=== PATIENT | female | born 1945 | race Asian ===

== ENCOUNTER 2017-03-16 01:43 | Emergency (ER) | payer MEDICAID ==
[~2017-03-16] VITALS: Ht 162.6 cm; Wt 79.4 kg
[2017-03-16 01:43] VITALS: BP_SYST 155
[~2017-03-16 01:43] MED LIST: ASPI-1063 PO; ESCI10TA54 PO; METF750T PO; NOR10 PO
[2017-03-16] MEDS ORDERED: ASPIRIN 325 MG TABLET PO ONE (02:00)
[2017-03-16 02:19] LABS: BASOPHILS # (AUTO) 0.1 K/uL (0.0-0.2); BASOPHILS % (AUTO) 0.9 % (0.0-2.0); EOSINOPHILS # (AUTO) 0.6 K/uL (0.0-0.4); EOSINOPHILS % (AUTO) 5.7 % (0.0-4.0); HEMATOCRIT 39.9 % (36-48); LYMPHOCYTES # (AUTO) 3.4 K/uL (1.0-5.5); LYMPHOCYTES % (AUTO) 34.4 % (20.5-51.5); MEAN CORPUSCULAR HEMOGLOBIN 30 pg (27-31); MEAN CORPUSCULAR HGB CONC 33 % (32-36); MEAN CORPUSCULAR VOLUME 92 fL (79.0-98.0); MONOCYTES # (AUTO) 0.8 K/uL (0.0-1.0); MONOCYTES % (AUTO) 8.3 % (1.7-9.3); NEUTROPHILS # (AUTO) 5.1 K/uL (1.8-7.7); NEUTROPHILS % (AUTO) 50.7 % (40.0-70.0); PLATELET COUNT (AUTO) 247 K/uL (130-430); RED BLOOD CELL COUNT(AUTO) 4.32 MIL/uL (4.2-6.2); RED CELL DISTRIBUTION WIDTH 13.5 % (9.0-15.0)
[2017-03-16 02:24] LABS: ANION GAP 6 (5-15); CALCIUM 9.1 mg/dL (8.4-11.0); CHLORIDE 102 mmol/L (98-107); CREATININE 0.88 mg/dL (0.55-1.30); GLUCOSE 115 mg/dL (70-99); POTASSIUM 4.1 mmol/L (3.5-5.1); SODIUM SERUM 137 mmol/L (136-145); UREA NITROGEN, BLOOD 17 mg/dL (8-21)
[2017-03-16 02:28] LABS: ALANINE AMINOTRANSFERASE 30 U/L (12-78); ALBUMIN 3.6 g/dL (3.4-4.8); ASPARTATE AMINOTRANSFERASE 26 U/L (10-37); TOTAL BILIRUBIN 0.3 mg/dL (0.0-1.0); TOTAL PROTEIN, SERUM 7.9 g/dL (6.4-8.3)
[2017-03-16] MEDS ORDERED: LORazepam 2 MG/ML VIAL (FOR ER USE) IVP ONE (03:15)
[2017-03-16] MEDS ORDERED: KETOROLAC TROMETHAMINE 30 MG VIAL IVP ONE (03:15)
[2017-03-16 03:25] VITALS: BP_SYST 149
== END 2017-03-16 03:25 | disposition home or self-care (01) ==
LOC: SED 01:43
DX: M94.0 Chondrocostal junction syndrome [Tietze] (principal); E11.9 Type 2 diabetes mellitus without complications; I10 Essential (primary) hypertension; Z88.0 Allergy status to penicillin; Z88.2 Allergy status to sulfonamides; Z79.899 Other long term (current) drug therapy
CPT/HCPCS: 36415; 71010; 80053; 84484; 85025; 93005; 96374; 96375; 99285; J1885; J2060

== ENCOUNTER 2017-10-09 18:27 | Emergency (ER) | payer MEDICAID ==
[~2017-10-09] VITALS: Ht 157.5 cm; Wt 74.8 kg
[2017-10-09 18:33] VITALS: BP_SYST 145
[2017-10-09 19:19] LABS: BASOPHILS % (AUTO) 0.5 % (0.0-2.0); EOSINOPHILS # (AUTO) 0.5 K/uL (0.0-0.4); EOSINOPHILS % (AUTO) 5.8 % (0.0-4.0); HEMATOCRIT 45.2 % (36-48); HEMOGLOBIN 14.9 g/dL (12.0-16.0); LYMPHOCYTES % (AUTO) 31.8 % (20.5-51.5); MEAN CORPUSCULAR HEMOGLOBIN 31 pg (27-31); MEAN CORPUSCULAR HGB CONC 33 % (32-36); MEAN CORPUSCULAR VOLUME 93 fL (79.0-98.0); MONOCYTES # (AUTO) 0.7 K/uL (0.0-1.0); MONOCYTES % (AUTO) 7.3 % (1.7-9.3); NEUTROPHILS # (AUTO) 5.1 K/uL (1.8-7.7); NEUTROPHILS % (AUTO) 54.6 % (40.0-70.0); PLATELET COUNT (AUTO) 250 K/uL (130-430); RED BLOOD CELL COUNT(AUTO) 4.84 MIL/uL (4.2-6.2); RED CELL DISTRIBUTION WIDTH 13.6 % (9.0-15.0); WHITE BLOOD COUNT (AUTO) 9.3 K/uL (4.8-10.8)
[2017-10-09 19:29] LABS: ANION GAP 7 (5-15); CALCIUM 9.7 mg/dL (8.4-11.0); CHLORIDE 101 mmol/L (98-107); CREATININE 0.86 mg/dL (0.55-1.30); GLUCOSE 150 mg/dL (70-99); POTASSIUM 4.4 mmol/L (3.5-5.1); SODIUM SERUM 138 mmol/L (136-145); UREA NITROGEN, BLOOD 16 mg/dL (8-21)
[2017-10-09 19:33] LABS: PROTHROMBIN TIME 10.1 SECS (9.5-12.5)
[2017-10-09 19:37] LABS: ALANINE AMINOTRANSFERASE 30 U/L (12-78); ALBUMIN 3.6 g/dL (3.4-4.8); ASPARTATE AMINOTRANSFERASE 25 U/L (10-37); TOTAL BILIRUBIN 0.2 mg/dL (0.0-1.0)
[2017-10-09 21:56] VITALS: BP_SYST 145
== END 2017-10-09 21:56 | disposition home or self-care (01) ==
LOC: SED 18:27
DX: R42 Dizziness and giddiness (principal); E11.9 Type 2 diabetes mellitus without complications; I10 Essential (primary) hypertension; R79.1 Abnormal coagulation profile; Z88.0 Allergy status to penicillin; Z88.2 Allergy status to sulfonamides; Z79.82 Long term (current) use of aspirin; Z79.899 Other long term (current) drug therapy; Z79.84 Long term (current) use of oral hypoglycemic drugs
CPT/HCPCS: 36415; 70450-TC; 71045; 80053; 82962; 84484; 85025; 85610-TC; 85730-TC; 93005; 99285

== ENCOUNTER 2017-11-08 12:42 | Emergency (ER) | payer MEDICAID ==
[~2017-11-08] VITALS: Ht 162.6 cm; Wt 79.8 kg
[2017-11-08 12:55] VITALS: BP_SYST 110
[2017-11-08 14:48] LABS: BILIRUBIN,URINE NEGATIVE (NEGATIVE); BLOOD, URINE NEGATIVE (NEGATIVE); CLARITY/URINE CLEAR (CLEAR); COLOR,URINE YELLOW (YELLOW); GLUCOSE,URINE NEGATIVE (NEGATIVE); KETONES,URINE NEGATIVE (NEGATIVE); LEUKOCYTE ESTERASE ,URINE NEGATIVE (NEGATIVE); NITRITE, URINE NEGATIVE (NEGATIVE); PROTEIN URINE NEGATIVE (NEGATIVE); UROBILINOGEN,URINE 0.2 (0.2-1.0)
[2017-11-08 15:04] LABS: BASOPHILS # (AUTO) 0.1 K/uL (0.0-0.2); BASOPHILS % (AUTO) 0.8 % (0.0-2.0); EOSINOPHILS # (AUTO) 0.4 K/uL (0.0-0.4); EOSINOPHILS % (AUTO) 4.7 % (0.0-4.0); HEMATOCRIT 42.6 % (36-48); HEMOGLOBIN 13.8 g/dL (12.0-16.0); LYMPHOCYTES # (AUTO) 3.1 K/uL (1.0-5.5); LYMPHOCYTES % (AUTO) 35.2 % (20.5-51.5); MEAN CORPUSCULAR HEMOGLOBIN 30 pg (27-31); MEAN CORPUSCULAR HGB CONC 32 % (32-36); MEAN CORPUSCULAR VOLUME 93 fL (79.0-98.0); MONOCYTES # (AUTO) 0.7 K/uL (0.0-1.0); MONOCYTES % (AUTO) 8.2 % (1.7-9.3); NEUTROPHILS # (AUTO) 4.6 K/uL (1.8-7.7); NEUTROPHILS % (AUTO) 51.1 % (40.0-70.0); PLATELET COUNT (AUTO) 244 K/uL (130-430); RED CELL DISTRIBUTION WIDTH 13.4 % (9.0-15.0); WHITE BLOOD COUNT (AUTO) 8.9 K/uL (4.8-10.8)
[2017-11-08] MEDS ORDERED: LISINOPRIL 10 MG TABLET (PRINIVIL) PO ONE (15:30)
[2017-11-08] MEDS ORDERED: metFORMIN HCL 500 MG TABLET PO ONE (15:30)
[2017-11-08 16:07] LABS: ACETONE, SERUM NEGATIVE (NEGATIVE)
[2017-11-08 16:25] LABS: ANION GAP 5 (5-15); CHLORIDE 102 mmol/L (98-107); GLUCOSE 96 mg/dL (70-99); POTASSIUM 4.2 mmol/L (3.5-5.1); SODIUM SERUM 136 mmol/L (136-145)
[2017-11-08 16:26] LABS: ALANINE AMINOTRANSFERASE 39 U/L (12-78); ASPARTATE AMINOTRANSFERASE 34 U/L (10-37); CALCIUM 9.7 mg/dL (8.4-11.0); CREATININE 0.71 mg/dL (0.55-1.30); TOTAL BILIRUBIN 0.4 mg/dL (0.0-1.0); UREA NITROGEN, BLOOD 17 mg/dL (8-21)
[2017-11-08 16:27] LABS: ALBUMIN 3.7 g/dL (3.4-4.8); LIPASE 246 U/L (73-393)
[2017-11-08 16:57] VITALS: BP_SYST 127
== END 2017-11-08 16:58 | disposition home or self-care (01) ==
LOC: SED 12:42
DX: R42 Dizziness and giddiness (principal); I10 Essential (primary) hypertension; E11.29 Type 2 diabetes mellitus with other diabetic kidney complication; N28.9 Disorder of kidney and ureter, unspecified; Z88.2 Allergy status to sulfonamides; Z88.0 Allergy status to penicillin
CPT/HCPCS: 36415; 80053; 81003; 82009-TC; 82962; 83690-TC; 83880; 84484; 85025; 99284

== ENCOUNTER 2022-07-20 17:03 | Emergency (ER) | payer MEDICAID ==
[~2022-07-20] VITALS: Ht 162.6 cm; Wt 81.6 kg
[~2022-07-20 17:03] MED LIST changes: -ASPI-1063 PO; +ASPI-1393 PO; +ESCI-6 PO; -ESCI10TA54 PO
[2022-07-20 17:05] VITALS: BP_SYST 156
[2022-07-20 18:34] LABS: BASOPHILS # (AUTO) 0.1 K/uL (0.0-0.2); BASOPHILS % (AUTO) 0.8 % (0.0-2.0); EOSINOPHILS # (AUTO) 0.4 K/uL (0.0-0.4); EOSINOPHILS % (AUTO) 5.7 % (0.0-4.0); HEMATOCRIT 40.3 % (36-48); HEMOGLOBIN 13.3 g/dL (12.0-16.0); LYMPHOCYTES # (AUTO) 2.6 K/uL (1.0-5.5); LYMPHOCYTES % (AUTO) 32.6 % (20.5-51.5); MEAN CORPUSCULAR HEMOGLOBIN 30 pg (27-31); MEAN CORPUSCULAR HGB CONC 33 % (32-36); MEAN CORPUSCULAR VOLUME 91 fL (79.0-98.0); MONOCYTES # (AUTO) 0.8 K/uL (0.0-1.0); MONOCYTES % (AUTO) 10.6 % (1.7-9.3); NEUTROPHILS % (AUTO) 50.3 % (40.0-70.0); PLATELET COUNT (AUTO) 235 K/uL (130-430); RED BLOOD CELL COUNT(AUTO) 4.45 MIL/uL (4.2-6.2); RED CELL DISTRIBUTION WIDTH 14.3 % (9.0-15.0); WHITE BLOOD COUNT (AUTO) 7.9 K/uL (4.8-10.8)
[2022-07-20 18:41] LABS: BILIRUBIN,URINE NEGATIVE (NEGATIVE); BLOOD, URINE NEGATIVE (NEGATIVE); CLARITY/URINE CLEAR (CLEAR); COLOR,URINE YELLOW (YELLOW); GLUCOSE,URINE NEGATIVE (NEGATIVE); KETONES,URINE NEGATIVE (NEGATIVE); LEUKOCYTE ESTERASE ,URINE NEGATIVE (NEGATIVE); NITRITE, URINE NEGATIVE (NEGATIVE); PROTEIN URINE NEGATIVE (NEGATIVE); UROBILINOGEN,URINE 0.2 (0.2-1.0)
[2022-07-20 19:08] LABS: ANION GAP 7 (5-15); CALCIUM 10.1 mg/dL (8.4-11.0); CHLORIDE 102 mmol/L (98-107); CREATININE 0.89 mg/dL (0.55-1.30); GLUCOSE 129 mg/dL (70-99); POTASSIUM 4.2 mmol/L (3.5-5.1); UREA NITROGEN, BLOOD 18 mg/dL (8-21)
[2022-07-20 19:13] LABS: ALANINE AMINOTRANSFERASE 39 U/L (12-78); ALBUMIN 3.4 g/dL (3.4-4.8); ASPARTATE AMINOTRANSFERASE 38 U/L (10-37); LIPASE 265 U/L (73-393); TOTAL BILIRUBIN 0.2 mg/dL (0.0-1.0)
[2022-07-20 20:10] VITALS: BP_SYST 135
== END 2022-07-20 20:10 | disposition home or self-care (01) ==
LOC: SED 17:03
DX: K62.5 Hemorrhage of anus and rectum (principal); R10.31 Right lower quadrant pain; I11.0 Hypertensive heart disease with heart failure; I50.9 Heart failure, unspecified; E11.9 Type 2 diabetes mellitus without complications; Z88.0 Allergy status to penicillin; Z88.2 Allergy status to sulfonamides; Z79.899 Other long term (current) drug therapy
CPT/HCPCS: 36415; 76376; 80053; 81003; 83690; 85025; 99284

== ENCOUNTER 2022-10-11 11:34 | Emergency (ER) | payer MEDICAID ==
[~2022-10-11] VITALS: Ht 162.6 cm; Wt 79.8 kg
[2022-10-11 11:43] VITALS: BP_SYST 142
--- NOTE | 2022-10-11 11:50 | NUR ---
FROM HOME C/O ABD PAIN, VOMITED LAST NIGHT WITH VAGINAL BLEEDING DUE TO UTERINE PROLAPSE
--- NOTE | 2022-10-11 12:40 | NUR ---
PT BIB SON, AWAKE AND ALERT AOX4. NO SOB OR DISTRESS. PT C/O VAGINAL BLEEDING SINCE YESTERDAY. PT DENIES N/V. PT HAS HX OF UTERINE PROPLASE, DM2, DEPRESSION, HDL, GOUT. PT DENIES PAIN.
--- NOTE | 2022-10-11 12:55 | NUR ---
MD DR KHAN AT BEDSIDE
[2022-10-11 13:08] LABS: BASOPHILS # (AUTO) 0.1 K/uL (0.0-0.2); BASOPHILS % (AUTO) 0.5 % (0.0-2.0); EOSINOPHILS # (AUTO) 0.2 K/uL (0.0-0.4); EOSINOPHILS % (AUTO) 1.4 % (0.0-4.0); HEMATOCRIT 38.6 % (36-48); HEMOGLOBIN 12.6 g/dL (12.0-16.0); LYMPHOCYTES # (AUTO) 2.2 K/uL (1.0-5.5); LYMPHOCYTES % (AUTO) 20.2 % (20.5-51.5); MEAN CORPUSCULAR HEMOGLOBIN 30 pg (27-31); MEAN CORPUSCULAR HGB CONC 33 % (32-36); MEAN CORPUSCULAR VOLUME 92 fL (79.0-98.0); NEUTROPHILS # (AUTO) 7.5 K/uL (1.8-7.7); NEUTROPHILS % (AUTO) 68.9 % (40.0-70.0); PLATELET COUNT (AUTO) 273 K/uL (130-430); RED BLOOD CELL COUNT(AUTO) 4.18 MIL/uL (4.2-6.2); RED CELL DISTRIBUTION WIDTH 14.2 % (9.0-15.0); WHITE BLOOD COUNT (AUTO) 10.8 K/uL (4.8-10.8)
--- NOTE | 2022-10-11 13:08 | NUR ---
COVID SAMPLE COLLECTED, LABELED AND SENT TO LAB.
[2022-10-11 13:25] LABS: BILIRUBIN,URINE NEGATIVE (NEGATIVE); BLOOD, URINE 2+ (NEGATIVE); CLARITY/URINE SL CLOUDY (CLEAR); COLOR,URINE YELLOW (YELLOW); GLUCOSE,URINE NEGATIVE (NEGATIVE); KETONES,URINE NEGATIVE (NEGATIVE); LEUKOCYTE ESTERASE ,URINE 3+ (NEGATIVE); NITRITE, URINE POSITIVE (NEGATIVE); PROTEIN URINE NEGATIVE (NEGATIVE); UROBILINOGEN,URINE 0.2 (0.2-1.0)
[2022-10-11 13:27] LABS: ANION GAP 10 (5-15); CALCIUM 9.8 mg/dL (8.4-11.0); CHLORIDE 99 mmol/L (98-107); CREATININE 0.79 mg/dL (0.55-1.30); GLUCOSE 211 mg/dL (70-99); UREA NITROGEN, BLOOD 14 mg/dL (8-21)
[2022-10-11 13:32] LABS: ALANINE AMINOTRANSFERASE 35 U/L (12-78); ALBUMIN 3.3 g/dL (3.4-4.8); ASPARTATE AMINOTRANSFERASE 32 U/L (10-37); TOTAL BILIRUBIN 0.6 mg/dL (0.0-1.0)
[2022-10-11 13:36] LABS: BACTERIA,URINE MODERATE /HPF (None Seen)
[2022-10-11 13:37] LABS: WBC,URINE 80-100 /HPF (0-3)
[2022-10-11] MEDS ORDERED: NITR-85 PO (13:44)
[2022-10-11] MEDS ORDERED: cefTRIAXone 1 GM IVPB PREMIX 50 ML IV ONE (13:45)
[2022-10-11 15:09] VITALS: BP_SYST 136
--- NOTE | 2022-10-11 15:10 | NUR ---
Patient given written and verbal discharge instructions and verbalizes understanding. ER MD DR KHAN discussed with patient the results and treatment provided. Patient in stable condition. ID arm band removed. IV catheter removed intact and dressing applied, no active bleeding. Rx of MACROBID given. Patient educated on pain management and to follow up with PMD. Pain Scale 0/10. Opportunity for questions provided and answered. Medication side effect fact sheet provided.
== END 2022-10-11 15:09 | disposition home or self-care (01) ==
LOC: SED 11:34
DX: N81.4 Uterovaginal prolapse, unspecified (principal); N93.9 Abnormal uterine and vaginal bleeding, unspecified; N39.0 Urinary tract infection, site not specified; R10.9 Unspecified abdominal pain; R11.2 Nausea with vomiting, unspecified; E11.9 Type 2 diabetes mellitus without complications; I10 Essential (primary) hypertension; Z88.1 Allergy status to other antibiotic agents; Z88.2 Allergy status to sulfonamides; Z79.899 Other long term (current) drug therapy; Z20.822 Contact with and (suspected) exposure to COVID-19
CPT/HCPCS: 99285; 96365; 76856; 87426; 80053; 81000; 85025; 87040; 87086; 36415; J0696

== ENCOUNTER 2022-10-15 00:21 | Emergency (ER) | payer MEDICAID ==
[~2022-10-15] VITALS: Ht 162.6 cm; Wt 36.3 kg
[~2022-10-15 00:21] MED LIST changes: +NITR-85 PO
[2022-10-15 00:26] VITALS: BP_SYST 148
--- NOTE | 2022-10-15 00:30 | NUR ---
PT IS [facility] UN[id number] C/O ABD CRAMPS AND POSSIBLE S.E FR MACROBID PRESCRIBED FOR HER UTI ON 10/11/22. ALSO C/O N/V/D, DIZZINESS. HX: HTN, DM, HLD, ARTHRITIS. ALLERGIC TO FENTANYL & SULFA DRUGS. AMBULATORY W/ STEADY GAIT. B & B CONTINENT.
--- NOTE | 2022-10-15 00:31 | NUR ---
Placed in room 3 . Placed on desk monitor, blood pressure machine and pulse oximeter. To gown for exam. Side rails up. Report given to KEVIN MEHTA.
--- NOTE | 2022-10-15 00:38 | NUR ---
ER Dr. POOLE at bedside examining patient.
--- NOTE | 2022-10-15 00:40 | NUR ---
Urine specimen collected and SENT TO LAB.
[2022-10-15 01:10] LABS: CLARITY/URINE SLIGHTLY CLOUDY (CLEAR); COLOR,URINE YELLOW (YELLOW)
[2022-10-15 01:11] LABS: BILIRUBIN,URINE NEGATIVE (NEGATIVE); BLOOD, URINE 3+ (NEGATIVE); GLUCOSE,URINE NEGATIVE (NEGATIVE); KETONES,URINE NEGATIVE (NEGATIVE); LEUKOCYTE ESTERASE ,URINE 3+ (NEGATIVE); PROTEIN URINE NEGATIVE (NEGATIVE)
[2022-10-15 01:12] LABS: NITRITE, URINE NEGATIVE (NEGATIVE); UROBILINOGEN,URINE 0.2 (0.2-1.0)
[2022-10-15 01:27] LABS: WBC,URINE 50-80 /HPF (0-3)
[2022-10-15 01:28] LABS: BACTERIA,URINE MODERATE /HPF (None Seen); MUCUS,URINE None Seen /LPF (None Seen)
--- NOTE | 2022-10-15 01:38 | NUR ---
FAMILY AT BEDSIDE.SAFE & HAZARD FREE ENVIRONMENT PROVIDED.
[2022-10-15 01:40] LABS: ANION GAP 8 (5-15); CALCIUM 9.7 mg/dL (8.4-11.0); CHLORIDE 97 mmol/L (98-107); GLUCOSE 174 mg/dL (70-99); UREA NITROGEN, BLOOD 18 mg/dL (8-21)
[2022-10-15 01:45] LABS: ALANINE AMINOTRANSFERASE 47 U/L (12-78); ALBUMIN 3.1 g/dL (3.4-4.8); ASPARTATE AMINOTRANSFERASE 43 U/L (10-37); TOTAL BILIRUBIN 0.3 mg/dL (0.0-1.0)
[2022-10-15 01:46] LABS: BASOPHILS % (AUTO) 0.6 % (0.0-2.0); EOSINOPHILS # (AUTO) 0.5 K/uL (0.0-0.4); EOSINOPHILS % (AUTO) 5.6 % (0.0-4.0); HEMATOCRIT 37.5 % (36-48); HEMOGLOBIN 12.4 g/dL (12.0-16.0); LYMPHOCYTES # (AUTO) 3.3 K/uL (1.0-5.5); LYMPHOCYTES % (AUTO) 36.9 % (20.5-51.5); MEAN CORPUSCULAR HEMOGLOBIN 30 pg (27-31); MEAN CORPUSCULAR HGB CONC 33 % (32-36); MEAN CORPUSCULAR VOLUME 92 fL (79.0-98.0); MONOCYTES % (AUTO) 10.9 % (1.7-9.3); NEUTROPHILS # (AUTO) 4.2 K/uL (1.8-7.7); PLATELET COUNT (AUTO) 307 K/uL (130-430); RED BLOOD CELL COUNT(AUTO) 4.09 MIL/uL (4.2-6.2); RED CELL DISTRIBUTION WIDTH 14.1 % (9.0-15.0)
[2022-10-15] MEDS ORDERED: LEVO750T64 PO (02:15)
[2022-10-15 02:38] VITALS: BP_SYST 136
--- NOTE | 2022-10-15 02:39 | NUR ---
Patient given written and verbal discharge instructions and verbalizes understanding. ER MD DR. POOLE discussed with patient the results and treatment provided. Patient in stable condition ACCOMPANIED BY DAUGHTER. ID arm band removed. IV catheter removed intact and dressing applied, no active bleeding. Rx of LEVAQUIN given. Patient educated on pain management and to follow up with PMD. Pain Scale 0/10. Opportunity for questions provided and answered. Medication side effect fact sheet provided.
== END 2022-10-15 02:38 | disposition home or self-care (01) ==
LOC: SED 00:21
DX: N39.0 Urinary tract infection, site not specified (principal); R42 Dizziness and giddiness; R53.81 Other malaise; R68.83 Chills (without fever); E11.9 Type 2 diabetes mellitus without complications; I10 Essential (primary) hypertension; Z88.0 Allergy status to penicillin; Z88.2 Allergy status to sulfonamides; Z79.899 Other long term (current) drug therapy
CPT/HCPCS: 99284; 96365; 80053; 81000; 85025; 87040; 87086; 36415; 83605; J1956

== ENCOUNTER 2022-10-29 15:22 | Emergency (ER) | payer MEDICAID ==
[~2022-10-29] VITALS: Ht 152.4 cm; Wt 72.6 kg
[~2022-10-29 15:22] MED LIST changes: +LEVO750T64 PO
--- NOTE | 2022-10-29 15:22 | NUR ---
BROUGHT IN TO BED #5 AND TRIAGD. REPORT GIVEN TO CYRIL
[2022-10-29 15:25] VITALS: BP_SYST 134
[2022-10-29] MEDS ORDERED: KETOROLAC TROMETHAMINE 30 MG VIAL IVP ONE (15:45)
--- NOTE | 2022-10-29 15:50 | NUR ---
ER at bedside examining patient.
[2022-10-29 16:04] LABS: BASOPHILS # (AUTO) 0.1 K/uL (0.0-0.2); BASOPHILS % (AUTO) 0.7 % (0.0-2.0); EOSINOPHILS # (AUTO) 0.3 K/uL (0.0-0.4); EOSINOPHILS % (AUTO) 3.1 % (0.0-4.0); HEMATOCRIT 36.8 % (36-48); HEMOGLOBIN 12.1 g/dL (12.0-16.0); LYMPHOCYTES # (AUTO) 2.3 K/uL (1.0-5.5); MEAN CORPUSCULAR HEMOGLOBIN 30 pg (27-31); MEAN CORPUSCULAR HGB CONC 33 % (32-36); MEAN CORPUSCULAR VOLUME 92 fL (79.0-98.0); MONOCYTES # (AUTO) 0.7 K/uL (0.0-1.0); MONOCYTES % (AUTO) 8.7 % (1.7-9.3); NEUTROPHILS # (AUTO) 4.9 K/uL (1.8-7.7); NEUTROPHILS % (AUTO) 59.5 % (40.0-70.0); PLATELET COUNT (AUTO) 265 K/uL (130-430); RED BLOOD CELL COUNT(AUTO) 3.99 MIL/uL (4.2-6.2); RED CELL DISTRIBUTION WIDTH 14.8 % (9.0-15.0); WHITE BLOOD COUNT (AUTO) 8.3 K/uL (4.8-10.8)
[2022-10-29 16:20] LABS: ANION GAP 9 (5-15); CALCIUM 9.5 mg/dL (8.4-11.0); CHLORIDE 101 mmol/L (98-107); CREATININE 0.78 mg/dL (0.55-1.30); GLUCOSE 184 mg/dL (70-99); UREA NITROGEN, BLOOD 14 mg/dL (8-21)
[2022-10-29 16:25] LABS: ALANINE AMINOTRANSFERASE 43 U/L (12-78); ALBUMIN 3.2 g/dL (3.4-4.8); ASPARTATE AMINOTRANSFERASE 37 U/L (10-37); LIPASE 243 U/L (73-393); TOTAL BILIRUBIN 0.4 mg/dL (0.0-1.0)
--- NOTE | 2022-10-29 16:31 | NUR ---
provided urine specimen cup for pt, pt reports unable to go at this time. urine specimen cup left at bedside for pt
[2022-10-29 17:53] LABS: BILIRUBIN,URINE NEGATIVE (NEGATIVE); BLOOD, URINE NEGATIVE (NEGATIVE); CLARITY/URINE CLEAR (CLEAR); COLOR,URINE YELLOW (YELLOW); GLUCOSE,URINE NEGATIVE (NEGATIVE); KETONES,URINE NEGATIVE (NEGATIVE); LEUKOCYTE ESTERASE ,URINE NEGATIVE (NEGATIVE); NITRITE, URINE NEGATIVE (NEGATIVE); PH,URINE 6.5 (5.0-8.0); PROTEIN URINE NEGATIVE (NEGATIVE); UROBILINOGEN,URINE 0.2 (0.2-1.0)
[2022-10-29 18:17] VITALS: BP_SYST 117
--- NOTE | 2022-10-29 18:18 | NUR ---
PT SITTING UPRIGHT IN RJEFFREY, NO ACUTE DISTRESS NOTED. BREATHING EVEN AND UNLABORED. DIABETIC FOOD TRAY PROVIDED FOR PT. PT EATING FOOD AND IN POSITION OF COMFORT. NO CHANGES AT THIS TIME
--- NOTE | 2022-10-29 19:04 | NUR ---
discharge instructions reviewed with pt, pt verbalized understanding and denied questions. iv removed from r wrist, bleeding controlled and angiocath intact. pt ambulated from ed with steady gait
== END 2022-10-29 19:05 | disposition home or self-care (01) ==
LOC: SED 15:22
DX: N81.4 Uterovaginal prolapse, unspecified (principal); N93.9 Abnormal uterine and vaginal bleeding, unspecified; E11.9 Type 2 diabetes mellitus without complications; I10 Essential (primary) hypertension; Z88.0 Allergy status to penicillin; Z88.2 Allergy status to sulfonamides; Z79.899 Other long term (current) drug therapy
CPT/HCPCS: 99284; 96374; 80053; 82962; 83690; 85025; 36415; 81003; J1885

== ENCOUNTER 2023-05-12 15:26 | Emergency (ER) | payer MEDICAID ==
[~2023-05-12] VITALS: Ht 162.6 cm; Wt 70.3 kg
[2023-05-12 15:30] VITALS: BP_SYST 128; PULSE 71; RESP 16; TEMP 96.4; O2SAT 96
[2023-05-12 17:13] LABS: BILIRUBIN,URINE NEGATIVE (NEGATIVE); CLARITY/URINE HAZY (CLEAR); COLOR,URINE YELLOW (YELLOW); GLUCOSE,URINE NEGATIVE (NEGATIVE); KETONES,URINE NEGATIVE (NEGATIVE); PH,URINE 5.5 (5.0-8.0); PROTEIN URINE NEGATIVE (NEGATIVE)
[2023-05-12 17:14] LABS: BLOOD, URINE 1+ (NEGATIVE); LEUKOCYTE ESTERASE ,URINE 2+ (NEGATIVE); NITRITE, URINE POSITIVE (NEGATIVE); UROBILINOGEN,URINE 0.2 (0.2-1.0)
[2023-05-12 17:15] LABS: BACTERIA,URINE MODERATE /HPF (None Seen); MUCUS,URINE None Seen /LPF (None Seen); RBC,URINE NONE SEEN /HPF (0-3); WBC,URINE 50-80 /HPF (0-3)
[2023-05-12 17:20] LABS: BASOPHILS # (AUTO) 0.1 K/uL (0.0-0.2); BASOPHILS % (AUTO) 0.6 % (0.0-2.0); EOSINOPHILS # (AUTO) 0.5 K/uL (0.0-0.4); EOSINOPHILS % (AUTO) 4.8 % (0.0-4.0); HEMATOCRIT 39.5 % (36-48); HEMOGLOBIN 12.7 g/dL (12.0-16.0); LYMPHOCYTES # (AUTO) 2.7 K/uL (1.0-5.5); LYMPHOCYTES % (AUTO) 27.7 % (20.5-51.5); MEAN CORPUSCULAR HEMOGLOBIN 30 pg (27-31); MEAN CORPUSCULAR HGB CONC 32 % (32-36); MEAN CORPUSCULAR VOLUME 92 fL (79.0-98.0); MONOCYTES % (AUTO) 10.4 % (1.7-9.3); NEUTROPHILS # (AUTO) 5.5 K/uL (1.8-7.7); NEUTROPHILS % (AUTO) 56.5 % (40.0-70.0); PLATELET COUNT (AUTO) 476 K/uL (130-430); RED CELL DISTRIBUTION WIDTH 14.4 % (9.0-15.0); WHITE BLOOD COUNT (AUTO) 9.7 K/uL (4.8-10.8)
[2023-05-12 17:31] LABS: ALANINE AMINOTRANSFERASE 32 U/L (12-78); ALBUMIN 2.9 g/dL (3.4-4.8); ANION GAP 5 (5-15); ASPARTATE AMINOTRANSFERASE 56 U/L (10-37); CALCIUM 9.4 mg/dL (8.4-11.0); CARBON DIOXIDE 32 mmol/L (23-29); CHLORIDE 97 mmol/L (98-107); CREATININE 0.95 mg/dL (0.55-1.30); GLUCOSE 176 mg/dL (74-106); LIPASE 204 U/L (73-393); POTASSIUM 4.5 mmol/L (3.5-5.1); SODIUM SERUM 134 mmol/L (136-145); TOTAL BILIRUBIN 0.3 mg/dL (0.0-1.0); TOTAL PROTEIN, SERUM 8.1 g/dL (6.4-8.3); UREA NITROGEN, BLOOD 13 mg/dL (8-21)
[2023-05-12] MEDS ORDERED: AUG875 PO (18:35)
[2023-05-12] MEDS ORDERED: AMOXICILLIN/POTASSIUM CLAV 875 MG TABLET PO ONE (18:45)
[2023-05-12 18:51] VITALS: BP_SYST 118; PULSE 70; RESP 18; TEMP 98.5; O2SAT 98
== END 2023-05-12 18:51 | disposition home or self-care (01) ==
LOC: SED 15:26
DX: N39.0 Urinary tract infection, site not specified (principal); R33.9 Retention of urine, unspecified; R10.30 Lower abdominal pain, unspecified; R50.9 Fever, unspecified; E11.9 Type 2 diabetes mellitus without complications; I10 Essential (primary) hypertension; Z88.0 Allergy status to penicillin; Z88.2 Allergy status to sulfonamides; Z79.899 Other long term (current) drug therapy
CPT/HCPCS: 36415; 76376; 80053; 81000; 82962; 83605; 83690; 85025; 87040; 87086; 99284

== ENCOUNTER 2023-06-01 20:36 | Emergency (ER) | payer MEDICAID ==
[~2023-06-01] VITALS: Ht 160 cm; Wt 69.9 kg
[~2023-06-01 20:36] MED LIST changes: +AUG875 PO
[2023-06-01 20:40] VITALS: BP_SYST 126; PULSE 75; RESP 18; TEMP 97.6; O2SAT 96
[2023-06-01 21:57] LABS: BILIRUBIN,URINE NEGATIVE (NEGATIVE); BLOOD, URINE 2+ (NEGATIVE); CLARITY/URINE Slightly Cloudy (CLEAR); COLOR,URINE YELLOW (YELLOW); GLUCOSE,URINE NEGATIVE (NEGATIVE); KETONES,URINE NEGATIVE (NEGATIVE); LEUKOCYTE ESTERASE ,URINE 3+ (NEGATIVE); NITRITE, URINE NEGATIVE (NEGATIVE); PROTEIN URINE NEGATIVE (NEGATIVE); UROBILINOGEN,URINE 0.2 (0.2-1.0)
[2023-06-01] MEDS ORDERED: IBUP-1969 PO (22:19)
[2023-06-01] MEDS ORDERED: NITR-85 PO (22:19)
[2023-06-01] MEDS ORDERED: PHEN-726 PO (22:19)
[2023-06-01 22:24] LABS: BACTERIA,URINE MANY /HPF (None Seen); MUCUS,URINE None Seen /LPF (None Seen); WBC,URINE 20-50 /HPF (0-3)
[2023-06-02 00:14] VITALS: BP_SYST 128; PULSE 78; RESP 18; TEMP 98.3; O2SAT 97
== END 2023-06-02 00:14 | disposition home or self-care (01) ==
LOC: SED 20:36
DX: N39.0 Urinary tract infection, site not specified (principal); R30.0 Dysuria; R10.30 Lower abdominal pain, unspecified; E11.9 Type 2 diabetes mellitus without complications; I10 Essential (primary) hypertension; Z88.0 Allergy status to penicillin; Z88.2 Allergy status to sulfonamides; Z79.899 Other long term (current) drug therapy
CPT/HCPCS: 81000; 82962; 87086; 99283

== ENCOUNTER 2024-01-19 19:59 | Emergency (ER) | payer OTHER ==
[~2024-01-19] VITALS: Ht 160 cm; Wt 59.9 kg
[~2024-01-19 19:59] MED LIST changes: +IBUP-1969 PO; +PHEN-726 PO
[2024-01-19 20:11] VITALS: BP_SYST 128; PULSE 60; RESP 16; TEMP 97.5; O2SAT 98
[2024-01-19 20:42] LABS: BILIRUBIN,URINE NEGATIVE (NEGATIVE); BLOOD, URINE NEGATIVE (NEGATIVE); CLARITY/URINE CLEAR (CLEAR); COLOR,URINE YELLOW (YELLOW); GLUCOSE,URINE NEGATIVE (NEGATIVE); KETONES,URINE NEGATIVE (NEGATIVE); LEUKOCYTE ESTERASE ,URINE NEGATIVE (NEGATIVE); NITRITE, URINE NEGATIVE (NEGATIVE); PROTEIN URINE NEGATIVE (NEGATIVE); UROBILINOGEN,URINE 0.2 (0.2-1.0)
[2024-01-19] MEDS ORDERED: ONDA8TAB60 PO (21:03)
[2024-01-19] MEDS: KETOROLAC TROMETHAMINE 60 MG/2 ML VIAL IM ONE (21:15)
[2024-01-19 21:23] VITALS: BP_SYST 128; PULSE 60; RESP 16; TEMP 97.5; O2SAT 98
== END 2024-01-19 21:24 | disposition home or self-care (01) ==
LOC: SED 19:59
DX: R10.9 Unspecified abdominal pain (principal); R11.2 Nausea with vomiting, unspecified; R50.9 Fever, unspecified; E11.9 Type 2 diabetes mellitus without complications; I10 Essential (primary) hypertension; Z88.0 Allergy status to penicillin; Z88.2 Allergy status to sulfonamides; Z79.899 Other long term (current) drug therapy
CPT/HCPCS: 99283; 81001; 96372; 81003; J1885

== ENCOUNTER 2024-01-28 14:19 | Emergency (ER) | payer OTHER ==
[~2024-01-28] VITALS: Ht 162.6 cm; Wt 59.9 kg
[~2024-01-28 14:19] MED LIST changes: +ONDA8TAB60 PO
[2024-01-28 15:17] VITALS: BP_SYST 138; PULSE 66; RESP 18; TEMP 97.8; O2SAT 98
[2024-01-28 15:49] LABS: BASOPHILS # (AUTO) 0.1 K/uL (0.0-0.2); BASOPHILS % (AUTO) 0.8 % (0.0-2.0); EOSINOPHILS # (AUTO) 0.2 K/uL (0.0-0.4); EOSINOPHILS % (AUTO) 2.4 % (0.0-4.0); HEMATOCRIT 34.7 % (36-48); HEMOGLOBIN 11.5 g/dL (12.0-16.0); LYMPHOCYTES # (AUTO) 2.3 K/uL (1.0-5.5); LYMPHOCYTES % (AUTO) 25.3 % (20.5-51.5); MEAN CORPUSCULAR HEMOGLOBIN 30 pg (27-31); MEAN CORPUSCULAR HGB CONC 33 % (32-36); MEAN CORPUSCULAR VOLUME 90 fL (79.0-98.0); MONOCYTES # (AUTO) 0.8 K/uL (0.0-1.0); MONOCYTES % (AUTO) 9.3 % (1.7-9.3); NEUTROPHILS # (AUTO) 5.6 K/uL (1.8-7.7); NEUTROPHILS % (AUTO) 62.2 % (40.0-70.0); PLATELET COUNT (AUTO) 281 K/uL (130-430); RED BLOOD CELL COUNT(AUTO) 3.87 MIL/uL (4.2-6.2); RED CELL DISTRIBUTION WIDTH 14.3 % (9.0-15.0)
[2024-01-28 15:58] LABS: ALANINE AMINOTRANSFERASE 30 U/L (12-78); ALBUMIN 3.3 g/dL (3.4-4.8); ANION GAP 10 (5-15); ASPARTATE AMINOTRANSFERASE 30 U/L (10-37); BILIRUBIN,DIRECT 0.2 mg/dL (0.0-0.3); CALCIUM 9.6 mg/dL (8.4-11.0); CARBON DIOXIDE 28 mmol/L (23-29); CHLORIDE 99 mmol/L (98-107); CREATININE 0.97 mg/dL (0.55-1.30); GLUCOSE 167 mg/dL (74-106); POTASSIUM 4.4 mmol/L (3.5-5.1); SODIUM SERUM 137 mmol/L (136-145); TOTAL BILIRUBIN 0.4 mg/dL (0.0-1.0); TOTAL PROTEIN, SERUM 8.2 g/dL (6.4-8.3); UREA NITROGEN, BLOOD 12 mg/dL (8-21)
[2024-01-28] MEDS: SODIUM PHOSPHATE,MONO-DIBASIC 133 ML ENEMA RC ONE (18:36)
[2024-01-28] MEDS: METOCLOPRAMIDE HCL 10 MG/2 ML VIAL IM ONE (18:36)
[2024-01-28] MEDS: MAGNESIUM CITRATE 300 ML ORAL SOLUTION PO ONE (18:36)
[2024-01-28 19:50] VITALS: BP_SYST 138; PULSE 66; RESP 18; TEMP 97.8; O2SAT 98
== END 2024-01-28 19:33 | disposition home or self-care (01) ==
LOC: SED 14:19
DX: K59.00 Constipation, unspecified (principal); R10.32 Left lower quadrant pain; R11.0 Nausea; E11.9 Type 2 diabetes mellitus without complications; I10 Essential (primary) hypertension; Z88.0 Allergy status to penicillin; Z88.2 Allergy status to sulfonamides; Z79.899 Other long term (current) drug therapy
CPT/HCPCS: 99285; 74176; 80076; 80048; 85025; 36415; 96372; J2765

== ENCOUNTER 2024-04-06 19:22 | Inpatient (IN) | payer OTHER ==
[~2024-04-06] VITALS: Ht 162.6 cm; Wt 72.3 kg
[2024-04-06 19:35] VITALS: BP_SYST 159; PULSE 56; RESP 12; TEMP 98; O2SAT 94
[2024-04-06] MEDS: NACL 0.9% 1,000 ML IV ONE (20:32)
[2024-04-06 20:33] LABS: BASOPHILS % (AUTO) 0.4 % (0.0-2.0); EOSINOPHILS # (AUTO) 0.1 K/uL (0.0-0.4); EOSINOPHILS % (AUTO) 0.6 % (0.0-4.0); HEMATOCRIT 32.9 % (36-48); HEMOGLOBIN 10.9 g/dL (12.0-16.0); LYMPHOCYTES # (AUTO) 2.2 K/uL (1.0-5.5); MEAN CORPUSCULAR HEMOGLOBIN 28 pg (27-31); MEAN CORPUSCULAR HGB CONC 33 % (32-36); MEAN CORPUSCULAR VOLUME 85 fL (79.0-98.0); MONOCYTES # (AUTO) 0.9 K/uL (0.0-1.0); MONOCYTES % (AUTO) 8.2 % (1.7-9.3); NEUTROPHILS # (AUTO) 8.3 K/uL (1.8-7.7); NEUTROPHILS % (AUTO) 71.8 % (40.0-70.0); PLATELET COUNT (AUTO) 410 K/uL (130-430); RED BLOOD CELL COUNT(AUTO) 3.89 MIL/uL (4.2-6.2); RED CELL DISTRIBUTION WIDTH 14.9 % (9.0-15.0); WHITE BLOOD COUNT (AUTO) 11.5 K/uL (4.8-10.8)
[2024-04-06 20:42] LABS: INFLUENZA TYPE A Negative (NEGATIVE); INFLUENZA TYPE B NEGATIVE (NEGATIVE)
[2024-04-06 20:43] LABS: INR 1.1 (0.8-1.2)
[2024-04-06 20:45] LABS: ALANINE AMINOTRANSFERASE 18 U/L (12-78); ALBUMIN 2.9 g/dL (3.4-4.8); ANION GAP 9 (5-15); ASPARTATE AMINOTRANSFERASE 25 U/L (10-37); CALCIUM 9.4 mg/dL (8.4-11.0); CARBON DIOXIDE 28 mmol/L (23-29); CHLORIDE 98 mmol/L (98-107); CREATININE 0.91 mg/dL (0.55-1.30); GLUCOSE 129 mg/dL (74-106); POTASSIUM 3.7 mmol/L (3.5-5.1); SODIUM SERUM 135 mmol/L (136-145); TOTAL BILIRUBIN 0.4 mg/dL (0.0-1.0); TOTAL PROTEIN, SERUM 7.9 g/dL (6.4-8.3); UREA NITROGEN, BLOOD 18 mg/dL (8-21)
[2024-04-06 20:48] LABS: BILIRUBIN,DIRECT 0.1 mg/dL (0.0-0.3)
[2024-04-06] MEDS: PANTOPRAZOLE SODIUM 40 MG/VIAL (PROTONIX) IVP ONE (20:50)
[2024-04-06] MEDS: ONDANSETRON HCL 4 MG/2 ML VIAL IVP ONE (20:52)
[2024-04-06] MEDS: KETOROLAC TROMETHAMINE 15 MG VIAL IVP ONE (20:55)
[2024-04-06] MEDS ORDERED: EMPA25TA PO (21:09)
[2024-04-06] MEDS ORDERED: DICL50TA9 PO (21:09)
[2024-04-06] MEDS ORDERED: ESCI20TA PO (21:09)
[2024-04-06 21:35] LABS: BILIRUBIN,URINE NEGATIVE (NEGATIVE); BLOOD, URINE NEGATIVE (NEGATIVE); CLARITY/URINE SL CLOUDY (CLEAR); COLOR,URINE YELLOW (YELLOW); GLUCOSE,URINE 2+ (NEGATIVE); KETONES,URINE 1+ (NEGATIVE); LEUKOCYTE ESTERASE ,URINE 2+ (NEGATIVE); NITRITE, URINE NEGATIVE (NEGATIVE); PROTEIN URINE TRACE (NEGATIVE); UROBILINOGEN,URINE 0.2 (0.2-1.0)
[2024-04-06 21:43] LABS: BACTERIA,URINE MODERATE /HPF (None Seen); MUCUS,URINE None Seen /LPF (None Seen); RBC,URINE 0-3 /HPF (0-3); WBC,URINE 20-50 /HPF (0-3)
[2024-04-06] MEDS ORDERED: cefTRIAXone 1 GM VIAL ONE (22:03)
[2024-04-06] MEDS: cefTRIAXone 1 GM in D5W 50 ML IV ONE (22:04)
[2024-04-06] MEDS: ASPIRIN 81 MG TABLET(ECOTRIN) PO ONE (22:21)
[2024-04-06] MEDS: ACETAMINOPHEN 325 MG TABLET PO ONE (22:21)
[2024-04-06] MEDS: NITROGLYCERIN 1 INCH (GM) OINT. TP ONE (22:22)
[2024-04-06] MEDS ORDERED: DICLOFENAC SODIUM 25 MG TABLET.DR PO PRN (23:15)
[2024-04-06] MEDS ORDERED: PANTOPRAZOLE SODIUM 40 MG/VIAL (PROTONIX) IVP ONE (23:15)
[2024-04-07] MEDS ORDERED: LOPERAMIDE HCL 2 MG CAPSULE PO PRN
[2024-04-07] MEDS ORDERED: DEXTROSE 50% JECT 50 ML DISP.SYRIN IVP PRN
[2024-04-07] MEDS: LR 1,000 ML IV SCH (00:51)
[2024-04-07 01:30] VITALS: BP_SYST 101; PULSE 59; RESP 18; TEMP 97.8; O2SAT 95
[2024-04-07 07:40] LABS: BASOPHILS % (AUTO) 0.2 % (0.0-2.0); EOSINOPHILS # (AUTO) 0.1 K/uL (0.0-0.4); EOSINOPHILS % (AUTO) 1.3 % (0.0-4.0); HEMOGLOBIN 10.2 g/dL (12.0-16.0); LYMPHOCYTES # (AUTO) 2.9 K/uL (1.0-5.5); LYMPHOCYTES % (AUTO) 26.9 % (20.5-51.5); MEAN CORPUSCULAR HEMOGLOBIN 28 pg (27-31); MEAN CORPUSCULAR HGB CONC 33 % (32-36); MEAN CORPUSCULAR VOLUME 85 fL (79.0-98.0); MONOCYTES # (AUTO) 0.9 K/uL (0.0-1.0); MONOCYTES % (AUTO) 8.7 % (1.7-9.3); NEUTROPHILS # (AUTO) 6.7 K/uL (1.8-7.7); NEUTROPHILS % (AUTO) 62.9 % (40.0-70.0); PLATELET COUNT (AUTO) 379 K/uL (130-430); RED BLOOD CELL COUNT(AUTO) 3.66 MIL/uL (4.2-6.2); RED CELL DISTRIBUTION WIDTH 14.9 % (9.0-15.0); WHITE BLOOD COUNT (AUTO) 10.6 K/uL (4.8-10.8)
[2024-04-07 08:04] LABS: ALANINE AMINOTRANSFERASE 17 U/L (12-78); ALBUMIN 2.5 g/dL (3.4-4.8); ANION GAP 6 (5-15); ASPARTATE AMINOTRANSFERASE 22 U/L (10-37); CALCIUM 8.8 mg/dL (8.4-11.0); CARBON DIOXIDE 29 mmol/L (23-29); CHLORIDE 101 mmol/L (98-107); CREATININE 0.93 mg/dL (0.55-1.30); FREE T4 (FREE THYROXINE) 1.4 ng/dl (0.8-1.5); GLUCOSE 118 mg/dL (74-106); LIPASE 44 U/L (16-77); POTASSIUM 3.5 mmol/L (3.5-5.1); SODIUM SERUM 136 mmol/L (136-145); THYROID STIMULATING HORMONE 2.56 uIu/mL (0.36-3.74); TOTAL BILIRUBIN 0.3 mg/dL (0.0-1.0); TOTAL PROTEIN, SERUM 7.1 g/dL (6.4-8.3); UREA NITROGEN, BLOOD 15 mg/dL (8-21)
[2024-04-07 08:25] LABS: HEMOGLOBIN A1C 7.49 % (<5.7)
[2024-04-07 08:52] VITALS: BP_SYST 118; PULSE 59; RESP 16; TEMP 97.3; O2SAT 96
[2024-04-07] MEDS: LACTOBACILLUS RHAMNOSUS GG 1 CAP CAPSULE PO SCH (08:56)
[2024-04-07] MEDS: CITALOPRAM HYDROBROMIDE 20 MG TABLET PO SCH (08:56)
[2024-04-07] MEDS: amLODIPine BESYLATE 10 MG TABLET PO SCH (08:56)
[2024-04-07] MEDS: PANTOPRAZOLE SODIUM 40 MG/VIAL (PROTONIX) IVP SCH (08:57)
[2024-04-07] MEDS: ASPIRIN 81 MG TABLET(ECOTRIN) PO SCH (08:58)
[2024-04-07] MEDS: EMPAGLIFLOZIN 10 MG TABLET PO SCH (09:03)
[2024-04-07 09:36] VITALS: O2SAT 96
[2024-04-07 12:05] VITALS: BP_SYST 111; PULSE 60; RESP 17; TEMP 97.5; O2SAT 97
[2024-04-07] MEDS: DOCUSATE SODIUM 250 MG CAPSULE PO ONE (13:23)
[2024-04-07] MEDS: MILK OF MAGNESIA 30 ML UDC PO ONE (13:25)
[2024-04-07 16:24] LABS: TOTAL IRON BIND. CAPACITY 372 ug/dL (250-450)
[2024-04-07 16:26] LABS: CHOLESTEROL 173 mg/dL (<200); TRIGLYCERIDES 75 mg/dL (30-150)
[2024-04-07 16:27] LABS: HDL CHOLESTEROL 51 mg/dL (>55)
[2024-04-07 16:28] VITALS: BP_SYST 115; PULSE 62; RESP 16; TEMP 97.7; O2SAT 97
[2024-04-07] MEDS ORDERED: IBUPROFEN 200 MG TABLET PO PRN (19:45)
[2024-04-07 20:00] VITALS: BP_SYST 114; PULSE 73; RESP 18; TEMP 98.1; O2SAT 96
[2024-04-07] MEDS: DOCUSATE SODIUM 250 MG CAPSULE PO SCH (20:38)
[2024-04-07] MEDS: ACETAMINOPHEN 325 MG TABLET PO PRN (20:39)
[2024-04-07] MEDS: INSULIN REGULAR, HUMAN 100 UNITS/ML, 3 ML VIAL (humuLIN R) SUBCUT PRN (20:48)
[2024-04-08] VITALS: BP_SYST 120; PULSE 61; RESP 16; TEMP 98.2; O2SAT 94
[2024-04-08] MEDS ORDERED: MILK OF MAGNESIA 30 ML UDC PO PRN (07:00)
[2024-04-08 08:00] VITALS: O2SAT 97
[2024-04-08 08:25] VITALS: BP_SYST 136; PULSE 67; RESP 17; TEMP 97.8; O2SAT 97
[2024-04-08 11:40] VITALS: BP_SYST 110; PULSE 85; RESP 18; TEMP 97.3; O2SAT 100
[2024-04-08 16:32] VITALS: BP_SYST 116; PULSE 80; RESP 17; TEMP 97.7; O2SAT 99
[2024-04-08] MEDS ORDERED: MAGNESIUM CITRATE 300 ML ORAL SOLUTION PO ONE (18:00)
[2024-04-08] MEDS: BISACODYL 5 MG TABLET.DR (DULCOLAX) PO ONE (18:29)
[2024-04-08] MEDS: GOLYTELY / COLYTE SOLUTION 4 LITERS PO ONE (18:51)
[2024-04-08 20:00] VITALS: BP_SYST 124; PULSE 78; RESP 18; TEMP 97.5; O2SAT 96
[2024-04-08] MEDS: SOD FERRIC GLUC COMPLEX/SUC 125 MG in NS 100 ML IV SCH (21:57)
[2024-04-09 00:41] VITALS: BP_SYST 144; PULSE 75; RESP 17; TEMP 97.6; O2SAT 98
[2024-04-09 07:40] VITALS: O2SAT 97
[2024-04-09 07:52] LABS: BASOPHILS % (AUTO) 0.5 % (0.0-2.0); EOSINOPHILS # (AUTO) 0.3 K/uL (0.0-0.4); EOSINOPHILS % (AUTO) 4.3 % (0.0-4.0); HEMATOCRIT 34.7 % (36-48); HEMOGLOBIN 11.2 g/dL (12.0-16.0); LYMPHOCYTES # (AUTO) 2.2 K/uL (1.0-5.5); LYMPHOCYTES % (AUTO) 28.5 % (20.5-51.5); MEAN CORPUSCULAR HEMOGLOBIN 28 pg (27-31); MEAN CORPUSCULAR HGB CONC 32 % (32-36); MEAN CORPUSCULAR VOLUME 86 fL (79.0-98.0); MONOCYTES # (AUTO) 0.7 K/uL (0.0-1.0); NEUTROPHILS # (AUTO) 4.5 K/uL (1.8-7.7); NEUTROPHILS % (AUTO) 57.7 % (40.0-70.0); PLATELET COUNT (AUTO) 399 K/uL (130-430); RED BLOOD CELL COUNT(AUTO) 4.03 MIL/uL (4.2-6.2); WHITE BLOOD COUNT (AUTO) 7.8 K/uL (4.8-10.8)
[2024-04-09 08:00] VITALS: BP_SYST 128; PULSE 63; RESP 18; TEMP 97; O2SAT 97
[2024-04-09 08:06] LABS: ANION GAP 7 (5-15); CALCIUM 9.3 mg/dL (8.4-11.0); CARBON DIOXIDE 30 mmol/L (23-29); CHLORIDE 103 mmol/L (98-107); CREATININE 0.83 mg/dL (0.55-1.30); GLUCOSE 139 mg/dL (74-106); POTASSIUM 3.8 mmol/L (3.5-5.1); SODIUM SERUM 140 mmol/L (136-145); UREA NITROGEN, BLOOD 9 mg/dL (8-21)
[2024-04-09] MEDS: fentaNYL CITRATE/PF 100 MCG/2 ML AMP ONE (08:58)
[2024-04-09] MEDS ORDERED: MIDAZOLAM HCL 5 MG/5 ML VIAL ONE (08:59)
[2024-04-09] MEDS ORDERED: METOCLOPRAMIDE HCL 10 MG TABLET PO PRN (12:45)
[2024-04-09] MEDS ORDERED: DOCU250C71 PO (13:48)
[2024-04-09] MEDS ORDERED: LACT1CAP57 PO (13:48)
[2024-04-09] MEDS ORDERED: MOM PO (13:48)
[2024-04-09] MEDS ORDERED: PRO40 PO (13:48)
[2024-04-09] MEDS ORDERED: METO-290 PO (13:48)
[2024-04-09] MEDS ORDERED: MEROPENEM 1 GM in NS 100 ML IV SCH (14:00)
[2024-04-09] MEDS: ERTAPENEM SODIUM 1 GM in NS 50 ML IV ONE (14:11)
[2024-04-09] MEDS: MAG-AL HYDROX/SIMETH 30 ML UDC PO PRN (15:38)
[2024-04-09 16:16] VITALS: BP_SYST 118; PULSE 80; RESP 16; TEMP 97.4; O2SAT 94
[2024-04-09 19:00] VITALS: O2SAT 95
[2024-04-09 20:00] VITALS: BP_SYST 142; PULSE 78; RESP 18; TEMP 98.1; O2SAT 95
[2024-04-09] MEDS: HALOPERIDOL LACTATE 5 MG/ML VIAL IM PRN (23:56)
[2024-04-10 01:16] VITALS: BP_SYST 138; PULSE 78; RESP 18; TEMP 97.2; O2SAT 95
[2024-04-10 09:40] VITALS: O2SAT 96
[2024-04-10 12:52] VITALS: BP_SYST 146; PULSE 64; RESP 18; TEMP 98; O2SAT 96
[2024-04-10] MEDS: ERTAPENEM SODIUM 1 GM in NS 50 ML IV SCH (13:35)
[2024-04-10 16:43] VITALS: BP_SYST 130; PULSE 68; RESP 16; TEMP 97.7; O2SAT 98
== END 2024-04-10 17:30 | disposition home health service (06) | DRG 690 ==
LOC: SED 19:22 → STU 23:10 → SMU 04-08 19:55
PROVIDERS: ADMIT Internal Medicine; ATTEND Internal Medicine
PROC: 4A10X4Z Monitoring of Central Nervous Electrical Activity, External Approach (ICD-10-PCS; principal; 2024-04-10)
DX: N39.0 Urinary tract infection, site not specified (principal); E44.0 Moderate protein-calorie malnutrition; I24.89 Other forms of acute ischemic heart disease; K52.9 Noninfective gastroenteritis and colitis, unspecified; Z20.822 Contact with and (suspected) exposure to COVID-19; B96.20 Unspecified Escherichia coli [E. coli] as the cause of diseases classified elsewhere; I10 Essential (primary) hypertension; E11.40 Type 2 diabetes mellitus with diabetic neuropathy, unspecified; E78.5 Hyperlipidemia, unspecified; D50.9 Iron deficiency anemia, unspecified; K57.30 Diverticulosis of large intestine without perforation or abscess without bleeding; Z68.27 Body mass index [BMI] 27.0-27.9, adult; Z88.0 Allergy status to penicillin; Z88.2 Allergy status to sulfonamides; Z88.8 Allergy status to other drugs, medicaments and biological substances; E11.65 Type 2 diabetes mellitus with hyperglycemia
CPT/HCPCS: 36415; 70450-TC; 71045; 80048; 80053; 80061; 80076; 81000; 81001; 81015; 82948; 83037; 83540; 83550; 83605; 83690; 83735; 84439; 84443; 84484; 85025; 85610; 85730; 87040; 87086; 87186; 93005; 93306; 95816; 96374; 96375; 97110-GP; 97116-GP; 97163-GP; 97530-GP; 99285; G0378; J0696; J1335; J1630; J1815; J1885; J1956; J2250; J2405; J2470; J2916; J3010

== ENCOUNTER 2024-04-16 07:25 | Inpatient (IN) | payer OTHER ==
[~2024-04-16] VITALS: Ht 165.1 cm; Wt 72.6 kg
[2024-04-16] VITALS (16 sets, daily range): BP systolic 79–135; PULSE 79–108; RESP 14–19; TEMP 96.1–99.1; O2SAT 90–100
[~2024-04-16 07:25] MED LIST changes: -AUG875 PO; +DICL50TA9 PO; +DOCU250C71 PO; +EMPA25TA PO; -ESCI-6 PO; +ESCI20TA PO; -IBUP-1969 PO; +LACT1CAP57 PO; -LEVO750T64 PO; +METO-290 PO; +MOM PO; -NITR-85 PO; -PHEN-726 PO; +PRO40 PO
[2024-04-16] MEDS ORDERED: PANTOPRAZOLE SODIUM 40 MG/VIAL (PROTONIX) ONE ×2 (07:45→12:30)
[2024-04-16 07:49] LABS: BASOPHILS % (AUTO) 0.4 % (0.0-2.0); EOSINOPHILS # (AUTO) 0.1 K/uL (0.0-0.4); EOSINOPHILS % (AUTO) 1.2 % (0.0-4.0); LYMPHOCYTES # (AUTO) 2.2 K/uL (1.0-5.5); LYMPHOCYTES % (AUTO) 24.9 % (20.5-51.5); MEAN CORPUSCULAR HEMOGLOBIN 28 pg (27-31); MEAN CORPUSCULAR HGB CONC 31 % (32-36); MEAN CORPUSCULAR VOLUME 91 fL (79.0-98.0); MONOCYTES # (AUTO) 0.5 K/uL (0.0-1.0); MONOCYTES % (AUTO) 5.3 % (1.7-9.3); NEUTROPHILS # (AUTO) 6.1 K/uL (1.8-7.7); NEUTROPHILS % (AUTO) 68.2 % (40.0-70.0); PLATELET COUNT (AUTO) 177 K/uL (130-430); RED CELL DISTRIBUTION WIDTH 15.6 % (9.0-15.0); WHITE BLOOD COUNT (AUTO) 8.9 K/uL (4.8-10.8)
[2024-04-16] MEDS ORDERED: NOREPINEPHRINE 4 MG/4 ML VIAL IV ONE (07:59)
[2024-04-16 08:01] LABS: HEMOGLOBIN 4.3 g/dL (12.0-16.0); RED BLOOD CELL COUNT(AUTO) 1.53 MIL/uL (4.2-6.2)
[2024-04-16 08:02] LABS: HEMATOCRIT 13.8 % (36-48)
[2024-04-16] MEDS: NACL 0.9% 1,000 ML IV ONE (08:11)
[2024-04-16] MEDS: ONDANSETRON HCL 4 MG/2 ML VIAL IVP ONE (08:11)
[2024-04-16] MEDS: PANTOPRAZOLE SODIUM 80 MG in NS 100 ML IV ONE (08:11)
[2024-04-16 08:14] LABS: ALANINE AMINOTRANSFERASE 13 U/L (12-78); ALBUMIN 1.2 g/dL (3.4-4.8); ANION GAP 12 (5-15); ASPARTATE AMINOTRANSFERASE 19 U/L (10-37); BILIRUBIN,DIRECT 0.1 mg/dL (0.0-0.3); CARBON DIOXIDE 18 mmol/L (23-29); CHLORIDE 112 mmol/L (98-107); CREATININE 0.96 mg/dL (0.55-1.30); GLUCOSE 229 mg/dL (74-106); POTASSIUM 3.8 mmol/L (3.5-5.1); SODIUM SERUM 142 mmol/L (136-145); TOTAL BILIRUBIN 0.2 mg/dL (0.0-1.0); TOTAL PROTEIN, SERUM 3.7 g/dL (6.4-8.3); UREA NITROGEN, BLOOD 38 mg/dL (8-21)
[2024-04-16 08:16] LABS: CALCIUM 5.9 mg/dL (8.4-11.0)
[2024-04-16 08:24] LABS: INR 1.3 (0.8-1.2); PROTHROMBIN TIME 12.9 SECS (9.5-12.5)
[2024-04-16] MEDS ORDERED: DEXTROSE 50% JECT 50 ML DISP.SYRIN IVP PRN (08:45)
[2024-04-16] MEDS ORDERED: GLUCOSE (DEXTROSE) ORAL GEL -Adults PO PRN (08:45)
[2024-04-16] MEDS ORDERED: D5W 1,000 ML IV PRN (08:45)
[2024-04-16] MEDS: NOREPINEPHRINE BITARTRATE 4 MG in NS 246 ML IV ONE (08:57)
[2024-04-16] MEDS ORDERED: NOREPINEPHRINE BITARTRATE 4 MG in D5W 246 ML IV PRN (10:45)
[2024-04-16 11:03] LABS: HEMATOCRIT 35.2 % (36-48); MEAN CORPUSCULAR HEMOGLOBIN 27 pg (27-31); MEAN CORPUSCULAR HGB CONC 31 % (32-36); MEAN CORPUSCULAR VOLUME 86 fL (79.0-98.0); PLATELET COUNT (AUTO) 164 K/uL (130-430); RED BLOOD CELL COUNT(AUTO) 4.12 MIL/uL (4.2-6.2); RED CELL DISTRIBUTION WIDTH 15.6 % (9.0-15.0)
[2024-04-16] MEDS ORDERED: CALCIUM GLUCONATE 1 GM/10 ML VIAL IVP ONE (11:15)
[2024-04-16] MEDS: NACL 0.9% 1,000 ML IV SCH (11:23)
[2024-04-16 11:36] LABS: BAND % (MANUAL) 6 % (0-6); BASOPHILS % (MANUAL) 0 % (0-2); EOSINOPHILS % (MANUAL) 0 % (0-7); LYMPHOCYTES % (MANUAL) 4 % (20-46); MONOCYTES % (MANUAL) 3 % (0-11)
[2024-04-16 11:37] LABS: ANISOCYTOSIS 1+; HYPOCHROMASIA SLIGHT; PLATELET ESTIMATE ADEQUATE (ADEQUATE)
[2024-04-16] MEDS: CALCIUM GLUC 1 GM/100ML-NACL 100 ML IV ONE (12:00)
[2024-04-16] MEDS: METOCLOPRAMIDE HCL 10 MG/2 ML VIAL IVP ONE (13:20)
[2024-04-16] MEDS: PANTOPRAZOLE SODIUM 40 MG in NS 50 ML IV SCH ×2 (13:20→16:42)
[2024-04-16] MEDS: NOREPINEPHRINE BITARTRATE 8 MG in NS 242 ML IV PRN (14:41)
[2024-04-16 15:05] LABS: BASOPHILS % (AUTO) 0.1 % (0.0-2.0); LYMPHOCYTES # (AUTO) 1.8 K/uL (1.0-5.5); RED CELL DISTRIBUTION WIDTH 15.8 % (9.0-15.0)
[2024-04-16 15:16] LABS: HEMATOCRIT 30.6 % (36-48); LYMPHOCYTES % (AUTO) 7.7 % (20.5-51.5); MEAN CORPUSCULAR HEMOGLOBIN 27 pg (27-31); MEAN CORPUSCULAR HGB CONC 32 % (32-36); MEAN CORPUSCULAR VOLUME 84 fL (79.0-98.0); MONOCYTES # (AUTO) 0.9 K/uL (0.0-1.0); MONOCYTES % (AUTO) 4.1 % (1.7-9.3); NEUTROPHILS # (AUTO) 20.3 K/uL (1.8-7.7); NEUTROPHILS % (AUTO) 88.1 % (40.0-70.0); PLATELET COUNT (AUTO) 157 K/uL (130-430); RED BLOOD CELL COUNT(AUTO) 3.65 MIL/uL (4.2-6.2); WHITE BLOOD COUNT (AUTO) 23.1 K/uL (4.8-10.8)
[2024-04-16 15:29] LABS: HEMOGLOBIN 9.7 g/dL (12.0-16.0)
[2024-04-16] MEDS: MEROPENEM 1 GM in NS 100 ML IV SCH (16:53)
[2024-04-16] MEDS: VANCOMYCIN HCL 1,500 MG in NS 250 ML IV SCH (16:53)
[2024-04-16] MEDS: METOCLOPRAMIDE HCL 10 MG/2 ML VIAL IVP SCH (21:42)
[2024-04-16] MEDS: INSULIN LISPRO SLIDING SCALE 100 UNITS/ML, 3 ML VIAL (humaLOG) SUBCUT PRN (21:49)
[2024-04-16 23:17] LABS: BASOPHILS % (AUTO) 0.1 % (0.0-2.0); HEMATOCRIT 24.9 % (36-48); HEMOGLOBIN 8.3 g/dL (12.0-16.0); LYMPHOCYTES # (AUTO) 3.1 K/uL (1.0-5.5); LYMPHOCYTES % (AUTO) 13.2 % (20.5-51.5); MEAN CORPUSCULAR HEMOGLOBIN 28 pg (27-31); MEAN CORPUSCULAR HGB CONC 33 % (32-36); MEAN CORPUSCULAR VOLUME 82 fL (79.0-98.0); MONOCYTES # (AUTO) 1.6 K/uL (0.0-1.0); NEUTROPHILS # (AUTO) 18.4 K/uL (1.8-7.7); NEUTROPHILS % (AUTO) 79.7 % (40.0-70.0); PLATELET COUNT (AUTO) 158 K/uL (130-430); RED BLOOD CELL COUNT(AUTO) 3.02 MIL/uL (4.2-6.2); RED CELL DISTRIBUTION WIDTH 16.2 % (9.0-15.0); WHITE BLOOD COUNT (AUTO) 23.1 K/uL (4.8-10.8)
[2024-04-17] VITALS (28 sets, daily range): BP systolic 93–139; PULSE 64–87; RESP 13–26; TEMP 98.1–98.9; O2SAT 91–100
[2024-04-17 04:59] LABS: BASOPHILS % (AUTO) 0.1 % (0.0-2.0); HEMATOCRIT 28.8 % (36-48); HEMOGLOBIN 9.3 g/dL (12.0-16.0); LYMPHOCYTES # (AUTO) 2.9 K/uL (1.0-5.5); LYMPHOCYTES % (AUTO) 13.1 % (20.5-51.5); MEAN CORPUSCULAR HEMOGLOBIN 27 pg (27-31); MEAN CORPUSCULAR HGB CONC 32 % (32-36); MEAN CORPUSCULAR VOLUME 84 fL (79.0-98.0); MONOCYTES % (AUTO) 9.1 % (1.7-9.3); NEUTROPHILS # (AUTO) 17.2 K/uL (1.8-7.7); NEUTROPHILS % (AUTO) 77.7 % (40.0-70.0); PLATELET COUNT (AUTO) 153 K/uL (130-430); RED BLOOD CELL COUNT(AUTO) 3.43 MIL/uL (4.2-6.2); RED CELL DISTRIBUTION WIDTH 16.3 % (9.0-15.0); WHITE BLOOD COUNT (AUTO) 22.1 K/uL (4.8-10.8)
[2024-04-17 05:11] LABS: ALANINE AMINOTRANSFERASE 18 U/L (12-78); ALBUMIN 2.1 g/dL (3.4-4.8); ANION GAP 7 (5-15); ASPARTATE AMINOTRANSFERASE 24 U/L (10-37); CALCIUM 7.5 mg/dL (8.4-11.0); CARBON DIOXIDE 26 mmol/L (23-29); CHLORIDE 111 mmol/L (98-107); CREATININE 0.84 mg/dL (0.55-1.30); GLUCOSE 175 mg/dL (74-106); POTASSIUM 4.2 mmol/L (3.5-5.1); SODIUM SERUM 144 mmol/L (136-145); TOTAL BILIRUBIN 0.4 mg/dL (0.0-1.0); TOTAL PROTEIN, SERUM 4.9 g/dL (6.4-8.3); UREA NITROGEN, BLOOD 47 mg/dL (8-21)
[2024-04-17] MEDS: NACL 0.9% 1,000 ML IV ONE (05:46)
[2024-04-17] MEDS ORDERED: NACL 0.9% 1,000 ML IV ONE (06:45)
[2024-04-17] MEDS: MEPERIDINE 100 MG INJ. 100 MG/ML VIAL ONE (08:10)
[2024-04-17] MEDS: MIDAZOLAM HCL 5 MG/5 ML VIAL ONE (08:11)
[2024-04-17] MEDS: EPINEPHrine JECT 0.1 MG/ML SYR ONE ×2 (12:09→13:55)
[2024-04-17] MEDS: MORPHINE 2 MG/ML INJ. SYRINGE IVP PRN (21:17)
[2024-04-17] MEDS: VASOPRESSIN 20 UNITS in NS 99 ML IV PRN (21:19)
[2024-04-18] VITALS (28 sets, daily range): BP systolic 97–122; PULSE 58–94; RESP 9–40; TEMP 97.6–98.7; O2SAT 24–100
[2024-04-18 04:45] LABS: BASOPHILS % (AUTO) 0.1 % (0.0-2.0); EOSINOPHILS % (AUTO) 0.2 % (0.0-4.0); HEMATOCRIT 23.2 % (36-48); HEMOGLOBIN 7.4 g/dL (12.0-16.0); LYMPHOCYTES # (AUTO) 1.9 K/uL (1.0-5.5); LYMPHOCYTES % (AUTO) 10.8 % (20.5-51.5); MEAN CORPUSCULAR HEMOGLOBIN 27 pg (27-31); MEAN CORPUSCULAR HGB CONC 32 % (32-36); MEAN CORPUSCULAR VOLUME 85 fL (79.0-98.0); MONOCYTES # (AUTO) 1.5 K/uL (0.0-1.0); MONOCYTES % (AUTO) 8.3 % (1.7-9.3); NEUTROPHILS # (AUTO) 14.2 K/uL (1.8-7.7); NEUTROPHILS % (AUTO) 80.6 % (40.0-70.0); PLATELET COUNT (AUTO) 125 K/uL (130-430); RED BLOOD CELL COUNT(AUTO) 2.72 MIL/uL (4.2-6.2); RED CELL DISTRIBUTION WIDTH 16.3 % (9.0-15.0); WHITE BLOOD COUNT (AUTO) 17.6 K/uL (4.8-10.8)
[2024-04-18 04:59] LABS: BILIRUBIN,URINE NEGATIVE (NEGATIVE); BLOOD, URINE NEGATIVE (NEGATIVE); CLARITY/URINE CLEAR (CLEAR); COLOR,URINE YELLOW (YELLOW); GLUCOSE,URINE 1+ (NEGATIVE); KETONES,URINE 1+ (NEGATIVE); LEUKOCYTE ESTERASE ,URINE NEGATIVE (NEGATIVE); NITRITE, URINE NEGATIVE (NEGATIVE); PROTEIN URINE NEGATIVE (NEGATIVE); UROBILINOGEN,URINE 0.2 (0.2-1.0)
[2024-04-18 05:16] LABS: ALANINE AMINOTRANSFERASE 16 U/L (12-78); ANION GAP 4 (5-15); ASPARTATE AMINOTRANSFERASE 21 U/L (10-37); CALCIUM 7.6 mg/dL (8.4-11.0); CARBON DIOXIDE 28 mmol/L (23-29); CHLORIDE 111 mmol/L (98-107); GLUCOSE 173 mg/dL (74-106); POTASSIUM 4.1 mmol/L (3.5-5.1); SODIUM SERUM 143 mmol/L (136-145); TOTAL BILIRUBIN 0.4 mg/dL (0.0-1.0); TOTAL PROTEIN, SERUM 4.8 g/dL (6.4-8.3); UREA NITROGEN, BLOOD 20 mg/dL (8-21)
[2024-04-18] MEDS: ONDANSETRON HCL 4 MG/2 ML VIAL IVP PRN (06:19)
[2024-04-18] MEDS: ONDANSETRON HCL 4 MG/2 ML VIAL ONE (06:21)
[2024-04-18] MEDS ORDERED: VASOPRESSIN 20 UNITS in NS 99 ML IV PRN (08:15)
[2024-04-18] MEDS ORDERED: NOREPINEPHRINE BITARTRATE 8 MG in NS 242 ML IV PRN (08:15)
[2024-04-18] MEDS: MIDODRINE HCL 5 MG TABLET (PROAMATINE) PO SCH (20:46)
[2024-04-19] VITALS (15 sets, daily range): BP systolic 96–138; PULSE 58–90; RESP 14–26; TEMP 97–98.4; O2SAT 91–99
[2024-04-19] MEDS: LORazepam 2 MG/ML VIAL IVP PRN (00:44)
[2024-04-19] MEDS ORDERED: HYDROcodone/ACETAMIN 5-325 MG TAB (NORCO/ VICODIN) PO PRN (07:00)
[2024-04-19] MEDS: CITALOPRAM HYDROBROMIDE 20 MG TABLET PO SCH (08:16)
[2024-04-19] MEDS: PANTOPRAZOLE SODIUM 40 MG/VIAL (PROTONIX) IVP SCH (08:17)
[2024-04-19 08:42] LABS: BASOPHILS % (AUTO) 0.2 % (0.0-2.0); EOSINOPHILS # (AUTO) 0.2 K/uL (0.0-0.4); EOSINOPHILS % (AUTO) 1.3 % (0.0-4.0); HEMATOCRIT 27.6 % (36-48); HEMOGLOBIN 8.9 g/dL (12.0-16.0); LYMPHOCYTES # (AUTO) 2.9 K/uL (1.0-5.5); LYMPHOCYTES % (AUTO) 21.7 % (20.5-51.5); MEAN CORPUSCULAR HEMOGLOBIN 29 pg (27-31); MEAN CORPUSCULAR HGB CONC 33 % (32-36); MEAN CORPUSCULAR VOLUME 89 fL (79.0-98.0); MONOCYTES # (AUTO) 0.9 K/uL (0.0-1.0); NEUTROPHILS # (AUTO) 9.4 K/uL (1.8-7.7); NEUTROPHILS % (AUTO) 69.8 % (40.0-70.0); PLATELET COUNT (AUTO) 128 K/uL (130-430); RED CELL DISTRIBUTION WIDTH 16.8 % (9.0-15.0); WHITE BLOOD COUNT (AUTO) 13.5 K/uL (4.8-10.8)
[2024-04-19 09:10] LABS: ANION GAP 5 (5-15); CALCIUM 7.8 mg/dL (8.4-11.0); CARBON DIOXIDE 28 mmol/L (23-29); CHLORIDE 111 mmol/L (98-107); CREATININE 0.62 mg/dL (0.55-1.30); GLUCOSE 123 mg/dL (74-106); POTASSIUM 3.4 mmol/L (3.5-5.1); SODIUM SERUM 144 mmol/L (136-145); UREA NITROGEN, BLOOD 13 mg/dL (8-21)
[2024-04-19] MEDS ORDERED: MIDODRINE HCL 5 MG TABLET (PROAMATINE) PO PRN (10:00)
[2024-04-19] MEDS: POTASSIUM CHLORIDE 20 MEQ TABLET.ER PO ONE (11:20)
[2024-04-20] VITALS: BP_SYST 131; PULSE 91; RESP 18; TEMP 98.7; O2SAT 94
[2024-04-20 05:34] LABS: BASOPHILS % (AUTO) 0.3 % (0.0-2.0); EOSINOPHILS # (AUTO) 0.2 K/uL (0.0-0.4); EOSINOPHILS % (AUTO) 2.1 % (0.0-4.0); HEMATOCRIT 32.8 % (36-48); HEMOGLOBIN 10.8 g/dL (12.0-16.0); LYMPHOCYTES # (AUTO) 2.2 K/uL (1.0-5.5); LYMPHOCYTES % (AUTO) 20.3 % (20.5-51.5); MEAN CORPUSCULAR HEMOGLOBIN 29 pg (27-31); MEAN CORPUSCULAR HGB CONC 33 % (32-36); MEAN CORPUSCULAR VOLUME 88 fL (79.0-98.0); MONOCYTES % (AUTO) 9.1 % (1.7-9.3); NEUTROPHILS # (AUTO) 7.4 K/uL (1.8-7.7); NEUTROPHILS % (AUTO) 68.2 % (40.0-70.0); PLATELET COUNT (AUTO) 175 K/uL (130-430); RED BLOOD CELL COUNT(AUTO) 3.72 MIL/uL (4.2-6.2); RED CELL DISTRIBUTION WIDTH 16.9 % (9.0-15.0); WHITE BLOOD COUNT (AUTO) 10.9 K/uL (4.8-10.8)
[2024-04-20 05:47] LABS: ANION GAP 4 (5-15); CALCIUM 8.6 mg/dL (8.4-11.0); CARBON DIOXIDE 31 mmol/L (23-29); CHLORIDE 105 mmol/L (98-107); CREATININE 0.64 mg/dL (0.55-1.30); GLUCOSE 166 mg/dL (74-106); POTASSIUM 3.7 mmol/L (3.5-5.1); SODIUM SERUM 140 mmol/L (136-145); UREA NITROGEN, BLOOD 6 mg/dL (8-21)
[2024-04-20 08:00] VITALS: BP_SYST 140; PULSE 76; RESP 14; TEMP 97.6; O2SAT 95
[2024-04-20 09:45] VITALS: O2SAT 96
[2024-04-20] MEDS ORDERED: MIDO5TAB4 PO (10:33)
[2024-04-20 12:25] VITALS: BP_SYST 130; PULSE 72; RESP 18; TEMP 98; O2SAT 97
[2024-04-20 12:32] VITALS: BP_SYST 130; PULSE 72; RESP 18; TEMP 98; O2SAT 97
== END 2024-04-20 13:10 | disposition home or self-care (01) | DRG 871 ==
LOC: SED 07:25 → SIC 08:43 → STU 04-19 15:00
PROVIDERS: ADMIT Internal Medicine; ATTEND Internal Medicine
PROC: 30233N1 Transfusion of Nonautologous Red Blood Cells into Peripheral Vein, Percutaneous Approach (ICD-10-PCS; principal; 2024-04-16)
PROC: 05HY33Z Insertion of Infusion Device into Upper Vein, Percutaneous Approach (ICD-10-PCS; 2024-04-16)
PROC: 0DH67UZ Insertion of Feeding Device into Stomach, Via Natural or Artificial Opening (ICD-10-PCS; 2024-04-16)
PROC: 0DB78ZX Excision of Stomach, Pylorus, Via Natural or Artificial Opening Endoscopic, Diagnostic (ICD-10-PCS; 2024-04-17)
PROC: 0W3P8ZZ Control Bleeding in Gastrointestinal Tract, Via Natural or Artificial Opening Endoscopic (ICD-10-PCS; 2024-04-17)
DX: A41.9 Sepsis, unspecified organism (principal); K26.4 Chronic or unspecified duodenal ulcer with hemorrhage; R57.8 Other shock; D62 Acute posthemorrhagic anemia; D69.6 Thrombocytopenia, unspecified; E78.5 Hyperlipidemia, unspecified; I10 Essential (primary) hypertension; E83.51 Hypocalcemia; K29.70 Gastritis, unspecified, without bleeding; E11.40 Type 2 diabetes mellitus with diabetic neuropathy, unspecified; Z88.0 Allergy status to penicillin; Z88.2 Allergy status to sulfonamides; Z79.899 Other long term (current) drug therapy
CPT/HCPCS: 36415; 43239; 43255; 71045; 80048; 80053; 80076; 80202; 81001; 81003; 82948; 83037; 83605; 83880; 84484; 85007; 85025; 85027; 85610; 85730; 86886; 86900; 86901; 86920; 87040; 87081; 88305; 88312; 88313; 93005; 96365; 96375; 97112-GP; 97530-GP; 99291; C1889; G0378; J0171; J2060; J2175; J2185; J2250; J2270; J2405; J2470; J2765; J3370; J3490; J7050; J7060; P9021; Q9967

== ENCOUNTER 2024-05-02 19:05 | Emergency (ER) | payer OTHER ==
[~2024-05-02] VITALS: Ht 162.6 cm; Wt 72.6 kg
[~2024-05-02 19:05] MED LIST changes: +MIDO5TAB4 PO
[2024-05-02 19:21] VITALS: BP_SYST 107; PULSE 68; RESP 18; TEMP 97.6; O2SAT 98
[2024-05-02 20:29] LABS: BASOPHILS # (AUTO) 0.1 K/uL (0.0-0.2); BASOPHILS % (AUTO) 0.6 % (0.0-2.0); EOSINOPHILS # (AUTO) 0.3 K/uL (0.0-0.4); HEMATOCRIT 32.6 % (36-48); HEMOGLOBIN 10.6 g/dL (12.0-16.0); LYMPHOCYTES # (AUTO) 2.1 K/uL (1.0-5.5); LYMPHOCYTES % (AUTO) 25.4 % (20.5-51.5); MEAN CORPUSCULAR HEMOGLOBIN 29 pg (27-31); MEAN CORPUSCULAR HGB CONC 32 % (32-36); MEAN CORPUSCULAR VOLUME 90 fL (79.0-98.0); MONOCYTES # (AUTO) 0.7 K/uL (0.0-1.0); MONOCYTES % (AUTO) 8.7 % (1.7-9.3); NEUTROPHILS # (AUTO) 5.1 K/uL (1.8-7.7); NEUTROPHILS % (AUTO) 61.3 % (40.0-70.0); RED BLOOD CELL COUNT(AUTO) 3.61 MIL/uL (4.2-6.2); RED CELL DISTRIBUTION WIDTH 17.5 % (9.0-15.0); WHITE BLOOD COUNT (AUTO) 8.3 K/uL (4.8-10.8)
[2024-05-02 20:44] LABS: PLATELET COUNT (AUTO) 418 K/uL (130-430)
[2024-05-02 20:57] LABS: ALANINE AMINOTRANSFERASE 21 U/L (12-78); ALBUMIN 2.8 g/dL (3.4-4.8); ANION GAP 7 (5-15); ASPARTATE AMINOTRANSFERASE 26 U/L (10-37); BILIRUBIN,DIRECT 0.1 mg/dL (0.0-0.3); CALCIUM 9.4 mg/dL (8.4-11.0); CARBON DIOXIDE 26 mmol/L (23-29); CHLORIDE 102 mmol/L (98-107); CREATININE 0.79 mg/dL (0.55-1.30); GLUCOSE 163 mg/dL (74-106); LIPASE 62 U/L (16-77); SODIUM SERUM 135 mmol/L (136-145); TOTAL BILIRUBIN 0.3 mg/dL (0.0-1.0); TOTAL PROTEIN, SERUM 7.4 g/dL (6.4-8.3); UREA NITROGEN, BLOOD 16 mg/dL (8-21)
[2024-05-02] MEDS: PANTOPRAZOLE SODIUM 40 MG TAB PO ONE (21:19)
[2024-05-02] MEDS: OMEPRAZOLE Non-Formulary 20 MG CAPSULE.DR PO ONE (21:19)
[2024-05-02] MEDS ORDERED: PRO40 PO (21:22)
[2024-05-02] MEDS ORDERED: ONDA-8 TL (21:22)
[2024-05-02 21:32] VITALS: BP_SYST 107; PULSE 68; RESP 18; TEMP 97.6; O2SAT 98
== END 2024-05-02 21:32 | disposition home or self-care (01) ==
LOC: SED 19:05
DX: K27.9 Peptic ulcer, site unspecified, unspecified as acute or chronic, without hemorrhage or perforation (principal); R10.13 Epigastric pain; E11.9 Type 2 diabetes mellitus without complications; I10 Essential (primary) hypertension; E78.5 Hyperlipidemia, unspecified; Z88.0 Allergy status to penicillin; Z88.2 Allergy status to sulfonamides; Z91.018 Allergy to other foods; Z79.899 Other long term (current) drug therapy; Z79.2 Long term (current) use of antibiotics
CPT/HCPCS: 36415; 80048; 80076; 83690; 85025; 93005; 99284